=== PATIENT | male | born 1940 | race Caucasian/White ===

== ENCOUNTER 2025-10-28 12:38 | Emergency (ER) | payer OTHER, SELFPAY ==
[2025-10-28 12:39] VITALS: BP 149/88
[2025-10-28 13:21] VITALS: BP 149/75
[2025-10-28 14:00] VITALS: BP 138/77
--- NOTE | 2025-10-28 14:11 | ED.GENMED ---
History of Present Illness
General
Chief Complaint: Dizziness
Time Seen by Provider: 10/28/25 14:11
History of Present Illness
History of Present Illness:
FOCUSED PAST MEDICAL HISTORY
- Pituitary adenoma, has had PE/DVT
REVIEW OF OLD RECORDS
- I reviewed records, the patient was seen here with right-sided rib pain in March 2023
Note:
CHIEF COMPLAINT(S)
Lightheadedness after standing up.
HISTORY OF PRESENT ILLNESS
The patient is an 85-year-old male who experienced a episode of lightheadedness upon standing after breakfast at home. The patient reports a similar sensation occurring some time ago, which he attributes to anxiety, as he experiences anxiety issues.
He has not taken any medication for anxiety in recent years, although was previously prescribed something he opted not to take after reading about it. Currently, the patient feels well. No blood work has been performed today, but an
electrocardiogram showed a normal rhythm. The patient takes warfarin 5 mg daily due to a history of pulmonary embolism and deep vein thrombosis. The patient denies any headaches or chest pain but feels his mouth is dry and that he is hot. He reports
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
PAST MEDICAL AND SURIGICAL HISTORY
- History of pulmonary embolism.
- History of deep vein thrombosis in the right leg.
SOCIAL HISTORY
Patient reports anxiety but currently does not use medication for it.
MEDICATIONS
- Warfarin 5 mg daily.
REVIEW OF SYSTEMS
- General: Reports feeling hot, with a dry mouth.
- Cardiovascular: No chest pain or discomfort.
- Neurological: Experienced lightheadedness upon standing.
- Psychiatric: History of anxiety.
PHYSICAL EXAM
General: Alert, no acute distress.
Skin: Warm, dry.
Head: Normocephalic, atraumatic.
Neck: Supple, trachea midline.
Eye, Ears, Nose, Mouth and Throat: Oral mucosa dry.
Cardiovascular: Normal peripheral perfusion, No edema. 2 out of 6 systolic murmur in the upper sternal borders
Respiratory: Respirations are non-labored.
Gastrointestinal: Abdomen nondistended.
Back: Normal range of motion, Normal alignment.
Musculoskeletal: Normal ROM, normal strength.
Neurological: Alert and oriented to person, place, time, and situation, No focal neurological deficit observed. Normal [id number] testing. He is oriented to month and knows his age.
Psychiatric: Cooperative, appropriate mood & affect.
PLAN
1. Perform basic blood work to assess potential causes for the lightheadedness and dry mouth.
2. Administer fluids as the patient reports feeling hot and experiencing dry mouth.
3. Monitor the patients cardiac rhythm as a precaution due to past history and current bi-fascicular block.
DIFFERENTIAL DIAGNOSIS
The Differential Diagnosis includes, in no particular order and is not limited to:
1. Orthostatic hypotension.
2. Dehydration.
3. Anxiety-induced dizziness.
4. Cardiac arrhythmia.
5. Medication side effect.
6. Electrolyte imbalance.
7. Transient ischemic attack.
8. Aortic stenosis.
9. Vestibular disorder.
10. Hyperthermia.
EKG
- Sinus 84 first-degree AV block bifascicular block is now more prominent in comparison to 04/04/2023
LABS
- White count is normal, hemoglobin is 12.8, chemistries unremarkable with exception of slightly low sodium of 133, TSH is normal
UPDATE
-SUMMARY OF ENCOUNTER
The patient, an 85-year-old male, presented to the emergency department with complaints of lightheadedness after standing up, feeling hot, and experiencing a dry mouth. An electrocardiogram (EKG) was performed showing normal rhythm. Basic blood work
was conducted. The white blood cell count was normal, hemoglobin was slightly anemic but essentially unchanged at 12.8 g/dL, and electrolytes were largely normal except for a marginally low sodium at 133 mmol/L. Thyroid function tests and other
electrolytes were within normal limits. The patient was monitored, received fluids during their stay, and showed improvement, demonstrating the ability to get up and move without significant symptoms.
DISPOSITION
The patient was discharged home with instructions for follow-up care.
ASSESSMENT
The reasons for the patients symptoms may include orthostatic hypotension, dehydration, anxiety-induced dizziness, cardiac arrhythmia, medication side effects, or electrolyte imbalance based on the clinical findings and tests results.
PLAN
1. Discharge the patient from the emergency department.
2. Advise continued monitoring for symptoms and oral hydration at home.
3. Schedule follow-up with primary care for continued evaluation of symptoms like lightheadedness and review of anticoagulation management with warfarin.
INDEPENDENT REVIEW OF LABS AND INTERPRETATION OF TESTS
My independent review of CBC indicates a slightly anemic hemoglobin level at 12.8 g/dL, consistent with previous lab values.
My independent review of CMP shows sodium level is low at 133 mmol/L, which is slightly below normal but not alarming.
All other electrolytes and thyroid function tests were within normal limits.
MEDICATION RECONCILIATION
1. Warfarin 5 mg daily.
MEDICAL DECISION MAKING
- Number and Complexity of Problems Addressed: Chronic conditions affecting care include a history of pulmonary embolism and deep vein thrombosis. Differential diagnosis includes orthostatic hypotension, dehydration, anxiety-induced dizziness,
cardiac arrhythmia, medication side effect, electrolyte imbalance, aortic stenosis, vestibular disorder, hyperthermia, transient ischemic attack.
- Data:
Category 1:
My independent interpretation of EKG shows normal heart rhythm.
- Risk:
Prescription drug management continues with warfarin. Consideration of Admission/Observation: Escalation of care including admission/observation was considered given the complexity and risk of the patient�s presenting complaint and underlying
conditions. However, ultimately I feel the patient is safe for outpatient management with close follow-up. Reasoning: Work-up reassuring, does not reveal any acute life/organ-threatening processes, patients symptoms well controlled upon
reevaluation, reexamination is reassuring, vitals are stable, patient agreeable with discharge, reliable for follow-up.
DIAGNOSIS
- Lightheadedness
- History of anxiety
Past History
Past History
ED Past Medical History: Other (History of pulmonary embolism, pituitary tumor, DVT, diverticulosis, renal cyst)
ED Past Surgical History: Other (Cataract surgery)
Social History
Tobacco: Non-smoker
Alcohol: None
Drug: None
Personal:
Living: with family
Employment: Retired
Family History
Family History: Other (No coronary artery disease history)
Phy Exam
Physical Exam
Physical Exam:
See HPI
Course
Orders/Labs/Results
Orders:
Orders
10/28/25 12:39
EKG [Electrocardiogram (*1)] Urgent
Reason for Study: Vertigo / Dizzy
EKG- Treatment ONCE
10/28/25 14:17
0.9% Sodium Chloride 500 ml [Nss] 500 ml IV BOLUS
10/28/25 14:23
Basic Metabolic Panel Urgent
Complete Blood Count/With Diff Urgent
TSH Reflex To Free T4 Urgent
Abnormal Lab Results
10/28/25
14:23
RBC 3.99 L 10^6/uL
(4.70-6.10)
Hgb 12.8 L g/dL
(13.0-18.0)
Hct 36.3 L %
(39.0-52.0)
MCH 32.1 H pg
(27.0-31.0)
Absolute Lymphs (auto) 1.1 L 10^3/uL
(1.2-3.4)
Neutrophils % 77.7 H %
(42.2-75.2)
Lymphocytes % 13.1 L %
(20.5-51.1)
Sodium 133 L mmol/L
(135-145)
10/28/25 14:23
10/28/25 14:23
Vital Signs
Initial and Last Documented VS:
Initial Vital Signs
Temp Pulse Resp BP Pulse Ox
36.7 C 96 18 149/88 99
10/28/25 12:39 10/28/25 12:39 10/28/25 12:39 10/28/25 12:39 10/28/25 12:39
Last Documented Vital Signs
Temp Pulse Resp BP Pulse Ox
36.7 C 72 16 138/77 100
10/28/25 12:39 10/28/25 14:00 10/28/25 14:05 10/28/25 14:00 10/28/25 14:14
*Pulse Oximetry
SaO2: 100
Oxygen Mode of Delivery: Room air
Patient hypoxic: no
*Critical Care Note
Total Time (30-74mins, 75-104mins- exclusive of procedures): Not Applicable
ED Attending Note
-
Portions of this chart may have been created with voice recognition software.� Occasional wrong word or��sound alike� substitutions may have occurred due to the inherent limitations of voice recognition software.
Discharge Plan
Departure
Prescriptions:
No Action
cabergoline [Dostinex] 0.5 MG tablet
0.25 mg PO .TUE/SAT
multivitamin with folic acid [Tab-A-Stephanie] 1 TABLET tablet
1 tab PO DAILY
Benefiber
2 tsp PO DAILY
Coumadin:
5 mg PO QPM
Referrals:
Jolie Reeves DO [Family Provider, Family Practice]
Interventions
Interventions:
*Risk Screen - Suicide Last Done: 10/28/25 12:39
*General Assessment Last Done: 10/28/25 12:39
*Neglect/Abuse Screening Last Done: 10/28/25 14:25
*ED- Fall Risk Assessment Last Done: 10/28/25 14:25
*ED COVID-19 Vaccine History Last Done: 10/28/25 12:39
*ED Influenza Vaccine History Last Done: 10/28/25 12:39
ED- Neurological Assessment Last Done: 10/28/25 13:22
ED- Cardiac Assessment Last Done: 10/28/25 13:23
ED Swallowing Screen Last Done: 10/28/25 14:25
Discharge Date and Time
Print Language: UPPER SORBIAN
[2025-10-28] MEDS: NSS 500 IV (14:23)
[2025-10-28 14:33] LABS: Hematocrit 36.3 % (39.0-52.0); Hemoglobin 12.8 g/dL (13.0-18.0); Mean Corp Hgb Conc. 35.3 g/dL (33.0-37.0); Mean Corpuscular Volume 91.0 fL (80.0-94.0); Nucleated Red Blood Cells % 0 % (-); Platelet Count 230 10^3/uL (130-400); Red Cell Dist. Width 13.6 % (11.5-14.5)
[2025-10-28 14:47] LABS: Blood Urea Nitrogen 16 mg/dl (9-20); Calcium 9.1 mg/dl (8.4-10.2); Carbon Dioxide 27 mmol/L (22-30); Chloride 105 mmol/L (98-107); Glucose 89 mg/dl (70-99); Potassium 4.3 mmol/L (3.5-5.1); Sodium 133 mmol/L (135-145); eGFR > 60.00
[2025-10-28 15:00] VITALS: BP 152/80
[2025-10-28 16:00] VITALS: BP 163/88
== END 2025-10-28 16:32 | disposition home or self-care (01) ==
LOC: EMR 12:38
PROVIDERS: EMERGENCY PHYSICIAN Emergency Medicine; FAMILY PHYSICIAN Family Medicine
DX: R42 Dizziness and giddiness (principal); R68.2 Dry mouth, unspecified; F41.9 Anxiety disorder, unspecified; Z86.711 Personal history of pulmonary embolism; R01.1 Cardiac murmur, unspecified; I45.2 Bifascicular block; D64.9 Anemia, unspecified; K57.90 Diverticulosis of intestine, part unspecified, without perforation or abscess without bleeding; N28.1 Cyst of kidney, acquired; Z79.01 Long term (current) use of anticoagulants; Z86.718 Personal history of other venous thrombosis and embolism; Z88.1 Allergy status to other antibiotic agents
CPT/HCPCS: 99284; 96360; 80048; 84443; 85025; 93005